=== PATIENT | female | born 2000 | race Caucasian/White ===

== ENCOUNTER 2019-11-05 18:43 | Emergency (ER) | payer MEDICAID, SELFPAY ==
[2019-11-05 18:56] VITALS: BP 130/82; PULSE 95; RESP 16; TEMP 36.8; O2SAT 98; BMI 45.3
--- NOTE | 2019-11-05 19:26 | HMH.EDUTC ---
[facility] Disposition Clinical Impression: Finger laceration Qualifiers: Encounter type: initial encounter Finger: little finger Damage to nail status: without damage Foreign body presence: without foreign body Laterality: right Qualified Code(s): S61.216A - Laceration without foreign body of right little finger without damage to nail, initial encounter Disposition: Home, Self-Care Condition on Discharge: Good Instructions: DI for Laceration Repair -- Simple, How to Care for a Laceration After Repair Additional Instructions: Keep the wound clean and dry. Wear the finger splint for the next couple of days to allow the wound to begin to heal. Keep a dressing on it if you is going to be getting it dirty. Watch the for signs of infection, such as redness, swelling, drainage, fever. etc. Take tylenol or ibuprofen for pain. Follow up with your regular doctor for any issues, or return here. Return in 10 days to have the sutures removed. GO TO THE ER FOR ANY WORSENING SYMPTOMS OR CONCERNS. Referrals: Basil Saenz [Primary Care Provider] - Forms: Work/School Release Time of Disposition: 19:32 Medical Decision Making - Medical Records Medical records reviewed: No: I reviewed the patient's medical records. - Miko Inquiry Pt receiving controlled substance: No Vital Signs: 11/05/19 18:56 Temperature 98.2 F Temperature Source Oral Pulse Rate [Right Brachial] 95 H Respiratory Rate 16 Blood Pressure [Right Arm] 130/82 Blood Pressure Mean [Right Arm] 98 Blood Pressure Source [Right Arm] Automatic Cuff Blood Pressure Position [Right Arm] Sitting 02 Sat by Pulse Oximetry 98 Oxygen Delivery Method Room Air [facility] HPI - General Stated complaint: [id number] aHOME lAC r lITTLE FINGER Time Seen by Provider: 11/05/19 19:26 Mode of Arrival: Ambulatory Source of Information: Patient Limitations: No Limitations Description of Symptoms (Recalled from Triage Doc. by RN): Pt advises she was washing dishes and and cut her right pinky finger HEENT Symptoms (Recalled from RN notes): No Resp Symptoms (Recalled from RN notes): No Skin Symptoms (Recalled from RN notes): Yes (pt has lac to the right pinky finger) MS Symptoms (Recalled from RN notes): No Functional Status (Recalled from RN notes): na - History of Present Illness Provider Complaint: She states that she was washing dishes right before she came in and a glass broke and she cut her right smallest finger. She denies any numbness or tingling. She did had some bleeding at first, but she has got that to stop with holding pressure. - Related Data Home Medications Medication Instructions Recorded Confirmed norethindrone 1 mg-ethinyl 1 tab PO DAILY 06/05/18 06/05/18 estradiol 20 mcg (21)-iron 75 mg (7) tablet Allergies Allergy/AdvReac Type Severity Reaction Status Date / Time No Known Allergies Allergy Verified 11/05/19 19:02 - Worker's Comp Is this a Worker's Comp case?: No [facility] History - Hepatitis A Screen Drug use history?: No High risk sexual behaviors?: No History of sexually transmitted infection?: No Currently employed?: No Childcare worker?: No Do you have indoor plumbing?: Yes Do you have electricity?: Yes Attestation statement:: This patient has been screened for Hepatitis A risk factors. I have reviewed the patient's past medical history: Yes Medical History: Reports:: Asthma Denies:: Cancer, Diabetes Mellitus Type 1, Diabetes Mellitus Type 2, MRSA Other Medical History: Reports: Other Other Surgeries: Yes: No Previous Surgery Amputation: No Fractures: No Comment: wisdom teeth - Social History Smoking Status: Never smoker Alcohol Intake: never Substance Use Type: denies use Occupational Status: employed Family Hx:: No significant family history ROS Obtained: Yes All systems reviewed & no additional complaints - Constitutional Constitutional: Denies chills, Denies fever(s) - Integumentary/Breasts
[2019-11-05 19:43] VITALS: BP 132/70; PULSE 70; RESP 16; TEMP 36.9; O2SAT 98
== END 2019-11-05 19:44 | disposition home or self-care (01) ==
PROVIDERS: Emergency Provider Nurse Practitioner Family; PCP Family Medicine
DX: S61.216A Laceration without foreign body of right little finger without damage to nail, initial encounter (principal); W25.XXXA Contact with sharp glass, initial encounter; Y92.010 Kitchen of single-family (private) house as the place of occurrence of the external cause; J45.909 Unspecified asthma, uncomplicated
CPT/HCPCS: 12001; 99201

== ENCOUNTER → 2022-09-11 10:09 | Outpatient (CLI) | payer OTHER, SELFPAY ==
[2022-09-11 10:58] LABS: Basophils % 0.5 % (0.1-2.0); Eosinophils # 0.1 K/mm3 (0.0-0.4); Eosinophils % 1.3 % (0.1-12.0); Hematocrit 41.6 % (37.0-47.0); Hemoglobin 13.6 g/dL (12.2-16.2); Lymphocytes # 2.2 K/mm3 (0.7-4.5); Lymphocytes % 27.2 % (10-50); Mean Corpuscular HGB Conc 32.6 g/dL (31.8-35.4); Mean Corpuscular Hemoglobin 27.4 pg (27.0-31.2); Mean Corpuscular Volume 83.8 fl (81-99); Mean Platelet Volume 8.4 fl (7.4-10.4); Monocytes # 0.3 K/mm3 (0.1-1.0); Monocytes % 4.1 % (1.7-9.3); Neutrophils # 5.5 K/mm3 (1.8-7.8); Neutrophils % 66.9 % (37.0-80.0); Platelet Count 305 K/mm3 (142-424); Red Blood Count 4.96 M/mm3 (4.20-5.40); Red Cell Distribution Width 14.6 % (11.5-17.5); White Blood Count 8.1 K/mm3 (4.8-10.8)
[2022-09-11 11:11] LABS: Alanine Aminotransferase 21 U/L (12-78); Albumin Level 3.9 g/dl (3.5-5.0); Albumin/Globulin Ratio 1.6 (1.1-1.8); Alkaline Phosphatase 125 U/L (38-126); Anion Gap 16.3 mEq/L (5-15); Aspartate Amino Transferase 20 U/L (14-36); Bilirubin,Total 0.4 mg/dl (0.2-1.3); Blood Urea Nitrogen 11 mg/dl (7-17); Calcium 8.7 mg/dl (8.4-10.2); Carbon Dioxide 27 mmol/L (22.0-30.0); Chloride 100 mmol/L (98-107); Chol/HDL Ratio 3.3 (1-3.5); Cholesterol 130 mg/dl (140-200); Estimated Glomerular Filt Rate 124 ml/min (>60); GFR (African American) 150 ML/MIN (>60); Globulin 2.5 g/dL (1.3-3.2); Glucose 91 mg/dl (74-100); HDL Cholesterol 40 mg/dl (40-60); Potassium 4.3 mmoL/L (3.5-5.1); Sodium 139 mmol/L (136-145); Total Protein,Serum 6.4 g/dl (6.3-8.2); Triglycerides 51 mg/dl (30-150); VLDL Cholesterol 10 mg/dL (0-40)
[2022-09-11 11:17] LABS: Microscopic, Urine URINE MICROSCOPIC (MICROSCOPIC)
[2022-09-11 11:19] LABS: Hemoglobin A1C 5.2 % (4.0-6.0)
[2022-09-11 11:22] LABS: Direct LDL Cholesterol 84.26 mg/dL (100-129)
[2022-09-11 11:26] LABS: Appearance,Urine CLEAR (Clear); Bilirubin,Urine Negative (Negative); Blood, Urine Negative (Negative); Color,Urine YELLOW (Yellow); Glucose,Urine (UA) Negative (Negative); Ketones,Urine Negative (Negative); Leukocyte Esterase,Urine Negative (Negative); Nitrate,Urine Negative (Negative); Protein,Urine Negative (Negative); Specific Gravity, Urine 1.015 (1.005-1.030); Urobilinogen,Urine 0.2 EU/dl (0.2)
[2022-09-11 11:37] LABS: Bacteria,Urine Trace /lpf; Squamous Epithelial Cell,Urine Occasional #/hpf (0-5); WBC,Urine Occasional #/hpf (0-3)
[2022-09-11 11:42] LABS: Thyroid Stimulating Hormone 1.85 uIU/mL (0.465-4.68)
[2022-09-11 12:01] LABS: Vitamin B12 275 pg/mL (239-931)
[2022-09-19 00:04] LABS: 1,25 Dihydroxy Vitamin D 49 pg/mL (.); 1,25-Dihydroxy, Vitamin D-2 <10 pg/mL (.); 1,25-Dihydroxy, Vitamin D-3 46 pg/mL (.)
== END ==
PROVIDERS: PCP Nurse Practitioner Family; Visit Provider Nurse Practitioner Family
DX: Z00.00 Encounter for general adult medical examination without abnormal findings (principal); R53.83 Other fatigue; J45.909 Unspecified asthma, uncomplicated; L73.2 Hidradenitis suppurativa; E66.9 Obesity, unspecified; Z68.42 Body mass index [BMI] 45.0-49.9, adult; Z13.1 Encounter for screening for diabetes mellitus; Z13.220 Encounter for screening for lipoid disorders
CPT/HCPCS: 36415; 80053; 80061; 81001; 82607; 82652; 83036; 84443; 85025; 87086

== ENCOUNTER → 2022-09-11 12:52 | Outpatient (CLI) | payer BC, SELFPAY | PROVIDERS: PCP Nurse Practitioner Family; Visit Provider Nurse Practitioner Family | DX: R53.83 Other fatigue (principal) ==

== ENCOUNTER → 2022-12-18 16:07 | Outpatient (CLI) | payer BC, OTHER, SELFPAY | PROVIDERS: PCP Nurse Practitioner Family; Visit Provider Nurse Practitioner Family | DX: J02.9 Acute pharyngitis, unspecified (principal) | CPT/HCPCS: 87070 ==

== ENCOUNTER 2023-06-07 11:40 | Emergency (ER) | payer OTHER, SELFPAY ==
[2023-06-07 12:05] VITALS: BP 140/84; PULSE 93; RESP 19; TEMP 36.8; O2SAT 99; BMI 52.8
[2023-06-07 12:21] LABS: UTC Pregnancy Test, Urine Negative (Negative)
--- NOTE | 2023-06-07 12:31 | EXP.UTC ---
Discharge Plan Disposition Patient Disposition: Home, Self-Care Condition: Good Prescriptions Prescriptions: No Action Nexplanon 68 mg implant 1 implant SUBDERMAL ONCE Referrals Follow up/Referrals: Provider,Referral, MD [Primary Care Provider] - See instructions Activity Restrictions/Add. Instructions Additional Instructions/Restrictions: Follow up with Radha Leary as scheduled today Further care an treatment from your Family Doctor Return if needed Straight to ER if any life threatening symptoms Clinical Impressions Clinical Impression: Abdominal discomfort Instructions Patient Instructions: DI for Abdominal Pain-Adult Discharge ED Provider: Georgina De Leon [facility] HPI General Stated complaint: abd pain Mode of Arrival: Ambulatory Source of Information: Patient Limitations: No Limitations Time Seen by Provider: 06/07/23 12:31 Description of Symptoms (Recalled from Triage Doc. by RN): Pt's symptoms are cramping above umbilicus, nausea, cramping, and sulfa burps. HEENT Symptoms (Recalled from RN notes): No Resp Symptoms (Recalled from RN notes): No Skin Symptoms (Recalled from RN notes): No MS Symptoms (Recalled from RN notes): No Functional Status (Recalled from RN notes): n/a History of Present Illness Provider Complaint: Patient states that she felt bad on Sunday and thought she had the stomach bug States that she had N/V/D States that then she felt a little better and then she started with sharp crampy like feeling in her umbilical area that comes and goes and having sulfa burps States that she hasnt had any vomiting since the initial except this morning and she vomited once but the cramping like pain has continued on and off all day and her stomach feels sore Denies fever denies chills States she has appointment with her PCP later today but she came on in to get checked Related Data Home Medications Medication Instructions Recorded Confirmed etonogestrel 68 mg subdermal 1 implant subdermal ONCE 12/03/19 06/07/23 implant (Nexplanon) Allergies Allergy/AdvReac Type Severity Reaction Status Date / Time amoxicillin Allergy Severe diarrhea, Verified 06/07/23 12:16 vomitting keflex Allergy Mild Nausea Uncoded 12/18/22 14:16 Worker's Comp Is this a Worker's Comp case?: No [facility] Disclaimer: The information contained in this section may have been updated after the patient was seen, as this information can be updated by other users. Family History Father Obesity Mother Cancer right renal cancer with right nephrectomy Social History Smoking Status: Never smoker alcohol intake: never substance use type: denies use current occupational status: employed Travel in the last 8 weeks: None adopted: Yes household members: spouse marital status: number of children: 0 well-balanced diet: about half the time caffeine: No physical activity: walking and weight training frequency: 5-6 times per week duration: 30-45 minutes/day ROS Obtained: Yes All systems reviewed & no additional complaints except as documented and Yes Systems reviewed as appropriate & no additional complaints except as documented Constitutional Constitutional: Reports system reviewed and no additional complaints, except as documented and Reports as per HPI ENT Ears, Nose, Mouth, and Throat: Reports system reviewed and no additional complaints, except as documented and Reports as per HPI Cardiovascular Cardiovascular: Reports system reviewed and no additional complaints, except as documented and Reports as per HPI Gastrointestinal Gastrointestingal: Reports system reviewed and no additional complaints, except as documented, as per HPI, belching (sulfa burp), cramping, nausea and vomiting (earlier in the week); Denies change in stool character, constipation, excessive flatus or heartburn Physical Exam General General appearance: alert and in no apparent distress ENT ENT exam: Present mucous membranes moist Respiratory Respiratory exam: Present normal lung sounds bilaterally; Absent respiratory distress or wheezes Cardiovascular Cardiovascular exam: Present regular rate, normal rhythm and normal heart sounds Abdominal Exam Abdominal exam: Present soft, tenderness (states that stomach is sore ) and normal bowel sounds; Absent distention Neurological Exam Neurological exam: Present alert, oriented X3 and normal gait Medical Decision Making Miko Inquiry Pt receiving controlled substance: No Miko was queried for this patient: No Vital Signs: 06/07/23 12:05 Temperature 98.3 F Temperature Source Oral Pulse Rate [Right Radial] 93 H Respiratory Rate 19 Blood Pressure [Right Arm] 140/84 Blood Pressure Mean [Right Arm] 102 Blood Pressure Source [Right Arm] Automatic Cuff Blood Pressure Position [Right Arm] Sitting 02 Sat by Pulse Oximetry 99 Oxygen Delivery Method Room Air Lab Data Lab results reviewed: Yes I reviewed the patient's lab results. Lab Results 06/07/23 12:11: Tst Clinic Negative Medical Decision Narrative: Discussed transfer to the ED patient declined at this time will contact PCP and discuss patient Spoke with Radha Leary APRN and discussed patient will do Hpylori breath test in [facility] and give patient a GI Cocktail and have her follow up as scheduled today in the clinic Patient reports instant relief with GI Cocktail
[2023-06-07] MEDS: BELLADONNA ALKALOIDS 60 ML ML PO (13:13)
[2023-06-07 13:35] VITALS: BP 140/84; PULSE 93; RESP 19; TEMP 36.8; O2SAT 99
[2023-06-08 17:06] LABS: H. pylori Breath Test Negative (Negative)
== END 2023-06-07 13:35 | disposition home or self-care (01) ==
PROVIDERS: Emergency Provider Nurse Practitioner
DX: R10.33 Periumbilical pain (principal); R11.2 Nausea with vomiting, unspecified
CPT/HCPCS: 81025; 83013; 99204; 99212; G0463

== ENCOUNTER 2023-06-28 08:07 | Outpatient (CLI) | payer OTHER, SELFPAY ==
--- NOTE | 2023-06-28 08:08 | US_ITS ---
FINAL REPORT TECHNIQUE: Sonographic images of the abdomen were obtained in all four quadrants. CLINICAL HISTORY: epigastric and umbilicus pain, n/v/d COMPARISON: None FINDINGS: LIVER: Homogeneous. No focal hepatic lesion or intrahepatic biliary dilatation. GALLBLADDER: No gallstones. No pericholecystic fluid collection or gallbladder wall thickening. The common duct measures 2 mm. This is within normal limits for age. PANCREAS: Unremarkable. RIGHT KIDNEY: 11.4 cm. No hydronephrosis, mass or stone. LEFT KIDNEY: 11.3 cm. No hydronephrosis, mass or stone. SPLEEN: 12.4 cm. No focal splenic lesion. AORTA/IVC: No abdominal aortic aneurysm. Visualized IVC within normal limits. OTHER: No ascites. IMPRESSION: Unremarkable ultrasound of the abdomen. Reviewed, Interpreted and Dictated by Chiquita Roberts MD Transcribed by Rere Blue Authenticated and . [facility]
== END 2023-06-28 23:59 ==
LOC: RAD 08:08
PROVIDERS: PCP Nurse Practitioner Family; Visit Provider Nurse Practitioner Family
DX: R10.13 Epigastric pain (principal); R10.33 Periumbilical pain
CPT/HCPCS: 76700

== ENCOUNTER 2023-09-19 10:39 | Outpatient (CLI) | payer OTHER, SELFPAY | END 2023-09-19 23:59 | disposition home or self-care (01) | LOC: LAB.DROPOF 09-20 10:40 | PROVIDERS: PCP Nurse Practitioner Family; Visit Provider Nurse Practitioner Family | DX: J02.9 Acute pharyngitis, unspecified (principal) | CPT/HCPCS: 87070 ==

== ENCOUNTER 2023-10-28 15:30 | Emergency (ER) | payer OTHER, SELFPAY ==
[2023-10-28 15:35] VITALS: BP 139/95; PULSE 105; RESP 18; TEMP 37.4; O2SAT 95; BMI 45.1
--- NOTE | 2023-10-28 16:04 | ED_ITS ---
Discharge Plan Disposition Patient Disposition: Home, Self-Care Condition: Good Prescriptions Prescriptions: New azithromycin [Zithromax] 250 mg tablet 250 mg PO UD DOSE PK Qty: 6 0RF Rx Instructions: Take two (2) tablets today, then one (1) tablet days #2 thru #5 methylprednisolone 4 mg Tablets,Dose Pack 4 mg PO DIRECTED 6 Days Qty: 21 0RF Rx Instructions: Take 1 pack as directed for 6 days [id number]-[id number] [Bromfed DM] 2-30-10 mg/5 mL Syrup 5 ml PO Q6H PRN (Reason: Cough) Qty: 240 0RF No Action Nexplanon 68 mg implant 1 implant SUBDERMAL ONCE omeprazole 20 mg capsule,delayed release(DR/EC) 20 mg PO DAILY Qty: 60 0RF cetirizine [Zyrtec] 10 mg tablet 10 mg PO DAILY Qty: 90 3RF Referrals Follow up/Referrals: Radha Leayr APRN [Primary Care Provider] - See instructions Activity Restrictions/Add. Instructions Additional Instructions/Restrictions: Drink plenty of fluids. Take tylenol or ibuprofen for pain or fever. Take the medications as directed. Follow up with your regular doctor. GO TO THE ER FOR ANY WORSENING SYMPTOMS Clinical Impressions Clinical Impression: Sinusitis, Viral syndrome Instructions Patient Instructions: Sinusitis, DI for Sinusitis Discharge ED Provider: Sandor Espino [facility] General Stated complaint: head is hurting,fever,congestion Mode of Arrival: Ambulatory Source of Information: Patient Limitations: No Limitations Time Seen by Provider: 10/28/23 16:04 Description of Symptoms (Recalled from Triage Doc. by RN): Pt's symptoms are GRANGER. HEENT Symptoms (Recalled from RN notes): Yes Resp Symptoms (Recalled from RN notes): No Skin Symptoms (Recalled from RN notes): No MS Symptoms (Recalled from RN notes): No Functional Status (Recalled from RN notes): n/a History of Present Illness Provider Complaint: She states that she has had sinus congestion and head ache for the past 2 days. She has had chills and body aches, but no documented fever. Related Data Home Medications Medication Instructions Recorded Confirmed etonogestrel 68 mg subdermal 1 implant subdermal ONCE 12/03/19 10/28/23 implant (Nexplanon) Previous Rx's Medication Instructions Recorded omeprazole 20 mg capsule,delayed 20 mg PO DAILY #60 caps 06/20/23 release cetirizine 10 mg tablet (Zyrtec) 10 mg PO DAILY #90 tabs 09/19/23 azithromycin 250 mg tablet 250 mg PO UD DOSE PK #6 tabs 10/28/23 (Zithromax) olzogwtvaygxnlp-dzjdrxckeexkupg-QW 5 ml PO Q6H PRN Cough #240 mL 10/28/23 2 mg-30 mg-10 mg/5 mL oral syrup (Bromfed DM) methylprednisolone 4 mg tablets in 4 mg PO DIRECTED 6 days #21 tabs 10/28/23 a dose pack Allergies Allergy/AdvReac Type Severity Reaction Status Date / Time amoxicillin Allergy Severe diarrhea, Verified 10/28/23 15:44 vomitting keflex Allergy Mild Nausea Uncoded 07/04/23 13:10 Worker's Comp Is this a Worker's Comp case?: No [facility] Disclaimer: The information contained in this section may have been updated after the patient was seen, as this information can be updated by other users. Medical History Abdominal discomfort URI (upper respiratory infection) Fatigue Asthma Hidradenitis suppurativa Morbid obesity with BMI of 45.0-49.9, adult Nexplanon in place Surgical History No significant past surgical history Family History Father Obesity Mother Cancer right renal cancer with right nephrectomy Social History Smoking Status: Never smoker alcohol intake: never substance use type: denies use current occupational status: employed Travel in the last 8 weeks: None adopted: Yes household members: spouse marital status: number of children: 0 well-balanced diet: about half the time caffeine: No physical activity: walking and weight training frequency: 5-6 times per week duration: 30-45 minutes/day ROS Obtained: Yes All systems reviewed & no additional complaints except as documented Constitutional Constitutional: Reports headache(s) and Reports poor appetite Eyes Eyes: Reports system reviewed and no additional complaints, except as documented ENT Ears, Nose, Mouth, and Throat: Reports as per HPI and Reports headache(s) Cardiovascular Cardiovascular: Reports system reviewed and no additional complaints, except as documented and Denies chest pain Respiratory Respiratory: Denies shortness of breath, Denies chest congestion, Reports cough, Denies stridor and Denies wheezing Gastrointestinal Gastrointestingal: Reports system reviewed and no additional complaints, except as documented; Denies abdominal pain, diarrhea or vomiting Musculoskeletal Musculoskeletal: Reports system reviewed and no additional complaints, except as documented and Denies arthralgias Integumentary/Breasts Skin/Breast: Reports system reviewed and no additional complaints, except as documented and Denies rash Neurologic Neurologic: Reports as per HPI, Reports headache(s) and Denies paresthesias Allergic/Immunologic Allergic/Immunologic: Denies wheezing Physical Exam General General appearance: alert and in no apparent distress Eye Eye exam: Present normal appearance, PERRL and EOMI ENT ENT exam: Present mucous membranes moist and normal external ear exam Expanded ENT Exam External ear exam: Present normal external inspection TM/Canal exam: Bilateral TM: erythema and bulging Nose exam: Absent sinus tenderness Nasal speculum exam: Bilateral: normal Mouth exam: Present normal external inspection; Absent drooling Teeth exam: Present normal inspection Throat exam: Present tonsillar erythema and tonsillomegaly Neck Neck exam: Present normal inspection, full ROM and trachea midline; Absent tenderness, lymphadenopathy or thyromegaly Chest Chest inspection: Present normal inspection and symmetric chest wall rise; Absent tenderness or rash Respiratory Respiratory exam: Present normal lung sounds bilaterally; Absent respiratory distress, wheezes, stridor or accessory muscle use Cardiovascular Cardiovascular exam: Present regular rate, normal rhythm and normal heart sounds Abdominal Exam Abdominal exam: Present soft; Absent distention, tenderness, guarding, rebound or rigidity Extremities Exam Extremities exam: Present normal inspection, full ROM and normal capillary refill; Absent tenderness or calf tenderness Back Exam Back exam: Present normal inspection and full ROM; Absent tenderness Neurological Exam Neurological exam: Present alert, oriented X3, CN II-XII intact, normal gait and reflexes normal; Absent motor sensory deficit Psychiatric Psychiatric exam: Present normal affect and normal mood Skin Skin exam: Present warm, dry, intact and normal color Lymphatic Lymphatic Findings: no adenopathy Medical Decision Making Medical Records Medical records reviewed: No I reviewed the patient's medical records. Miko Inquiry Pt receiving controlled substance: No Vital Signs: 10/28/23 15:35 Temperature 99.4 F Temperature Source Oral Pulse Rate [Right Radial] 105 H Respiratory Rate 18 Blood Pressure [Right Arm] 139/95 H Blood Pressure Mean [Right Arm] 109 Blood Pressure Source [Right Arm] Automatic Cuff Blood Pressure Position [Right Arm] Sitting 02 Sat by Pulse Oximetry 95 Oxygen Delivery Method Room Air
[2023-10-28] MEDS: KETOROLAC 60MG/2ML VIAL 60 MG IM (16:28)
[2023-10-28 16:41] VITALS: BP 139/95; PULSE 105; RESP 18; TEMP 37.4; O2SAT 95
--- NOTE | 2023-10-28 16:41 | PC.NURSE ---
Sent rapid to lab via tube system.
[2023-10-28 16:50] LABS: Adenovirus,PCR Not Detected (NotDetected); Bordetella Pertussis Not Detected (NotDetected); Chlamydophila Pneumoniae, PCR Not Detected (NotDetected); Coronavirus 229E Not Detected (NotDetected); Coronavirus NL63 Not Detected (NotDetected); Coronavirus OC43 Not Detected (NotDetected); Coronovirus HKU1,PCR Not Detected (NotDetected); Human Metapneumovirus Not Detected (NotDetected); Influenza A, PCR Not Detected (NotDetected); Influenza AH1, 2009 Not Detected (NotDetected); Influenza AH1, PCR Not Detected (NotDetected); Influenza AH3,PCR Not Detected (NotDetected); Influenza B, PCR Not Detected (NotDetected); Mycoplasma Pneumoniae, PCR Not Detected (NotDetected); Parainfluenza 1, PCR Not Detected (NotDetected); Parainfluenza 2, PCR Not Detected (NotDetected); Parainfluenza 3, PCR Not Detected (NotDetected); Parainfluenza 4, PCR Not Detected (NotDetected); Respiratory Syncytial Virus Not Detected (NotDetected); Rhinovirus/Enterovirus Not Detected (NotDetected)
[2023-10-28 19:34] LABS: Coronavirus 19, PCR Detected (NotDetected)
--- NOTE | 2023-10-28 19:40 | PC.NURSE ---
Called pt to discuss full panel results, and
--- NOTE | 2023-10-29 10:42 | PC.NURSE ---
PATIENT NOTIFIED OF POSITIVE COVID RESULT
== END 2023-10-28 16:41 | disposition home or self-care (01) ==
PROVIDERS: Emergency Provider Nurse Practitioner Family; PCP Nurse Practitioner Family
DX: U07.1 COVID-19 (principal); J01.90 Acute sinusitis, unspecified; R51.9 Headache, unspecified
CPT/HCPCS: 87581; 87632; 87635; 87798; 96372; 99212; 99214; G0463; J1885

== ENCOUNTER 2024-02-01 11:00 | Outpatient (RCR) | payer OTHER, SELFPAY | END 2024-02-01 23:59 | disposition home or self-care (01) | LOC: PT 11:00 | PROVIDERS: Visit Provider Nurse Practitioner Family | DX: M25.562 Pain in left knee (principal) | CPT/HCPCS: 97163 ==

== ENCOUNTER 2024-02-22 12:20 | Emergency (ER) | payer OTHER, SELFPAY ==
[2024-02-22 12:39] LABS: Microscopic, Urine URINE MICROSCOPIC (MICROSCOPIC)
[2024-02-22 12:41] LABS: Appearance,Urine SL CLOUDY (Clear); Bilirubin,Urine Negative (Negative); Blood, Urine TRACE-I (Negative); Color,Urine YELLOW (Yellow); Glucose,Urine (UA) Negative (Negative); Ketones,Urine Negative (Negative); Leukocyte Esterase,Urine TRACE (Negative); Nitrate,Urine Negative (Negative); Protein,Urine Negative (Negative); Specific Gravity, Urine 1.015 (1.005-1.030); Urobilinogen,Urine 0.2 EU/dl (0.2)
[2024-02-22 12:50] LABS: Bacteria,Urine 1+ /lpf; RBC,Urine Occasional #/hpf (0-3)
[2024-02-22 12:55] VITALS: BP 152/79; PULSE 80; RESP 18; TEMP 36.7; O2SAT 100; BMI 49.4
--- NOTE | 2024-02-22 12:57 | EXP.UTC ---
Discharge Plan Disposition Patient Disposition: Home, Self-Care Condition: Good Prescriptions Prescriptions: New phenazopyridine [Pyridium] 200 mg tablet 200 mg PO Q8H 2 Days Qty: 6 0RF nitrofurantoin monohyd/m-cryst [Macrobid] 100 mg Capsule 100 mg PO BID Qty: 10 0RF Rx Instructions: must administer with a meal/food No Action Nexplanon 68 mg implant 1 implant SUBDERMAL ONCE Referrals Follow up/Referrals: Radha Leary APRN [Primary Care Provider] - See instructions Activity Restrictions/Add. Instructions Additional Instructions/Restrictions: Drink plenty of fluids. Take tylenol or ibuprofen for pain or fever. Take the medications as directed. Follow up with your regular doctor. GO TO THE ER FOR ANY WORSENING SYMPTOMS The pyridium will make your urine turn orange, this is an expected side effect. It will stain your clothes if it comes into contact with them. We will culture the urine. That will tell what bacteria is causing your infection and which antibiotics will treat it best.This test takes 3 days to complete. Clinical Impressions Clinical Impression: UTI (urinary tract infection) Instructions Patient Instructions: Urinary Tract Infection, Urine Culture, DI for Urinary Tract Infection (UTI), Phenazopyridine Print Language Print Language: Macedonian Discharge ED Provider: Sandor Espino [facility] General Stated complaint: pain and frequent urination Time Seen by Provider: 02/22/24 12:57 History of Present Illness Provider Complaint: She states that for the past 2 days she has had low back pain, dysuria, and urinary frequency. Related Data Home Medications ?Medication ?Instructions ?Recorded ?Confirmed etonogestrel 68 mg subdermal 1 implant subdermal ONCE 12/03/19 02/22/24 implant (Nexplanon) Previous Rx's ?Medication ?Instructions ?Recorded nitrofurantoin 100 mg PO BID #10 caps 02/22/24 monohydrate/macrocrystals 100 mg capsule (Macrobid) phenazopyridine 200 mg tablet 200 mg PO Q8H 2 days #6 tabs 02/22/24 (Pyridium) Allergies Allergy/AdvReac Type Severity Reaction Status Date / Time amoxicillin Allergy Severe diarrhea, Verified 01/28/24 13:07 vomitting cephalexin [From Keflex] AdvReac Mild Nausea Verified 01/28/24 13:07 [facility] Disclaimer: The information contained in this section may have been updated after the patient was seen, as this information can be updated by other users. Medical History Abdominal discomfort Asthma Fatigue Hidradenitis suppurativa Morbid obesity with BMI of 45.0-49.9, adult Nexplanon in place inserted 01/11/2022 URI (upper respiratory infection) Surgical History No significant past surgical history Family History Father Obesity Mother Cancer right renal cancer with right nephrectomy Social History Smoking Status: Never smoker alcohol intake: never substance use type: denies use current occupational status: employed Travel in the last 8 weeks: None adopted: Yes household members: spouse marital status: number of children: 0 well-balanced diet: about half the time caffeine: No physical activity: walking and weight training frequency: 5-6 times per week duration: 30-45 minutes/day ROS Obtained: Yes All systems reviewed & no additional complaints except as documented Constitutional Constitutional: Reports system reviewed and no additional complaints, except as documented, Denies chills and Denies fever(s) Eyes Eyes: Denies eye discharge ENT Ears, Nose, Mouth, and Throat: Denies dysphagia, Denies sore throat and Denies throat swelling Cardiovascular Cardiovascular: Denies chest pain and Denies dyspnea Respiratory Respiratory: Denies chest congestion, Denies cough and Denies dyspnea Gastrointestinal Gastrointestingal: Denies abdominal pain, constipation, diarrhea, dysphagia, nausea or vomiting Genitourinary Female Genitourinary: Reports as per HPI, Reports dysuria, Reports urinary frequency, Denies urinary incontinence, Reports urinary hesitancy and Reports urinary urgency Musculoskeletal Musculoskeletal: Denies arthralgias and Reports back pain Integumentary/Breasts Skin/Breast: Denies rash Neurologic Neurologic: Denies paresthesias Allergic/Immunologic Allergic/Immunologic: Denies throat swelling Physical Exam General General appearance: alert and in no apparent distress Head Head exam: atraumatic and normocephalic Eye Eye exam: Present normal appearance, PERRL and EOMI ENT ENT exam: Present normal exam, mucous membranes moist, TM's normal bilaterally and normal external ear exam Neck Neck exam: Present normal inspection, full ROM and trachea midline; Absent tenderness, meningismus or lymphadenopathy Chest Chest inspection: Present normal inspection and symmetric chest wall rise; Absent tenderness Respiratory Respiratory exam: Present normal lung sounds bilaterally; Absent respiratory distress, wheezes or stridor Cardiovascular Cardiovascular exam: Present regular rate, normal rhythm and normal heart sounds Abdominal Exam Abdominal exam: Present soft and normal bowel sounds; Absent distention, tenderness, guarding, rebound, rigidity, incision, psoas sign, obturator sign, heel tap sign, Aguirre's sign, Rovsing's sign or tenderness at McBurney's Point Extremities Exam Extremities exam: Present normal inspection, full ROM and normal capillary refill; Absent tenderness, edema, joint swelling, calf tenderness or cyanosis Back Exam Back exam: Present normal inspection and full ROM; Absent tenderness, CVA tenderness (R) or CVA tenderness (L) Neurological Exam Neurological exam: Present alert, oriented X3 and normal gait Psychiatric Psychiatric exam: Present normal affect and normal mood Skin Skin exam: Present warm, dry, intact and normal color Lymphatic Lymphatic Findings: no adenopathy Medical Decision Making Medical Records Medical records reviewed: No I reviewed the patient's medical records. Screening: Per USPSTF and CDC recommendations, given the prevalence of disease in our region, it is our hospital?s policy to screen for HIV and viral Hepatitis for all patients aged 18 and over and those with ongoing risk factors. Miko Inquiry Pt receiving controlled substance: No Lab Data Lab results reviewed: Yes I reviewed the patient's lab results. Lab Results 02/22/24 12:30: Urine Color Yellow, Urine Appearance Sl cloudy, Urine pH 6.0, Ur Specific [place] 1.015, Urine Protein Negative, Urine Glucose (UA) Negative, Urine Ketones Negative, Urine Blood Trace-i, Urine Nitrate Negative, Urine Bilirubin Negative, Urine Urobilinogen 0.2, Ur Leukocyte Esterase Trace, Urine RBC Occasional, Urine WBC None, Ur Squamous Epith Cells 5-10, Urine Bacteria 1+ Orders (Tests/Meds): ORDERS Category Date Time Status Urinalysis and Microscopic Stat Lab 02/22/24 12:30 Completed Urine Culture Stat Micro 02/22/24 12:47 Ordered
[2024-02-22 13:13] VITALS: BP 152/79; PULSE 80; RESP 18; TEMP 36.7
== END 2024-02-22 13:14 | disposition home or self-care (01) ==
PROVIDERS: Emergency Provider Nurse Practitioner Family; PCP Nurse Practitioner Family
DX: N39.0 Urinary tract infection, site not specified (principal)
CPT/HCPCS: 81001; 87086; 99213; G0381

== ENCOUNTER 2024-03-06 10:13 | Outpatient (CLI) | payer OTHER, SELFPAY ==
[2024-03-06 10:52] LABS: Basophils % 0.3 % (0.1-2.0); Eosinophils # 0.1 K/mm3 (0.0-0.4); Eosinophils % 1.2 % (0.1-12.0); Hematocrit 40.6 % (37.0-47.0); Hemoglobin 13.9 g/dL (12.2-16.2); Lymphocytes # 1.4 K/mm3 (0.7-4.5); Lymphocytes % 15.2 % (10-50); Mean Corpuscular HGB Conc 34.2 g/dL (31.8-35.4); Mean Corpuscular Hemoglobin 29.1 pg (27.0-31.2); Mean Corpuscular Volume 85.1 fl (81-99); Mean Platelet Volume 8.2 fl (7.4-10.4); Monocytes # 0.5 K/mm3 (0.1-1.0); Monocytes % 5.2 % (1.7-9.3); Neutrophils # 7.3 K/mm3 (1.8-7.8); Neutrophils % 78.1 % (37.0-80.0); Platelet Count 270 K/mm3 (142-424); Red Blood Count 4.77 M/mm3 (4.20-5.40); Red Cell Distribution Width 13.9 % (11.5-17.5); White Blood Count 9.3 K/mm3 (4.8-10.8)
[2024-03-06 11:11] LABS: Alanine Aminotransferase 26 U/L (12-78); Albumin/Globulin Ratio 1.6 (1.1-1.8); Alkaline Phosphatase 108 U/L (38-126); Anion Gap 11.7 mEq/L (5-15); Aspartate Amino Transferase 24 U/L (14-36); Bilirubin,Total 0.5 mg/dl (0.2-1.3); Blood Urea Nitrogen 11 mg/dl (7-17); Calcium 8.8 mg/dl (8.4-10.2); Carbon Dioxide 27 mmol/L (22.0-30.0); Chloride 105 mmol/L (98-107); Chol/HDL Ratio 3.9 (1-3.5); Cholesterol 161 mg/dl (140-200); Estimated Glomerular Filt Rate 122 ml/min (>60); GFR (African American) 147 ML/MIN (>60); Globulin 2.5 g/dL (1.3-3.2); Glucose 89 mg/dl (74-100); HDL Cholesterol 41 mg/dl (40-60); Potassium 4.7 mmoL/L (3.5-5.1); Sodium 139 mmol/L (136-145); Total Protein,Serum 6.5 g/dl (6.3-8.2); Triglycerides 75 mg/dl (30-150); Uric Acid 4.3 mg/dl (2.5-6.2); VLDL Cholesterol 15 mg/dL (0-40)
[2024-03-06 11:20] LABS: Erythrocyte Sedimentation Rate 19 mm/hr (0-20)
[2024-03-06 11:22] LABS: C-Reactive Protein 37.6 mg/L (0-4); Direct LDL Cholesterol 104.27 mg/dL (100-129)
[2024-03-06 11:28] LABS: 25-OH Vitamin D, Total 37.1 ng/mL (30-100)
[2024-03-06 11:40] LABS: Thyroid Stimulating Hormone 2.17 uIU/mL (0.465-4.68)
[2024-03-06 11:47] LABS: HIV (1&2) Antibody Rapid NONREACTIVE (NONREACTIVE)
[2024-03-06 11:49] LABS: Iron 48 ug/dL (37-170)
[2024-03-06 11:53] LABS: Hemoglobin A1C 5.2 % (4.0-6.0)
[2024-03-06 12:03] LABS: Total Iron Binding Capacity 303 ug/dL (265-497)
[2024-03-06 12:27] LABS: Ferritin 54.4 ng/ml (6.24-137)
[2024-03-06 13:10] LABS: Vitamin B12 355 pg/mL (239-931)
[2024-03-07 05:12] LABS: HCV Ab Non Reactive (Non Reactive)
[2024-03-07 08:24] LABS: RA Latex Turbid. 13.1 IU/mL (<14.0)
[2024-03-07 11:15] LABS: Anti-Centromere B Antibodies <0.2 AI (0.0-0.9); Anti-DNA (DS) Ab Qn 1 IU/mL (0-9); Anti-Jo-1 <0.2 AI (0.0-0.9); Anti-Smith Antibody <0.2 AI (0.0-0.9); Antichromatin Antibodies <0.2 AI (0.0-0.9); Antiscleroderma-70 Antibodies <0.2 AI (0.0-0.9); RNP Antibodies <0.2 AI (0.0-0.9); Sjogren's Anti-SS-A <0.2 AI (0.0-0.9); Sjogren's Anti-SS-B <0.2 AI (0.0-0.9)
[2024-03-07 14:14] LABS: Anti-Cyclic Citrullinated Pept 6 units (0-19)
[2024-03-08 07:35] LABS: H. pylori Breath Test Negative (Negative)
[2024-03-11 15:17] LABS: Antinuclear Antibodies, IFA Positive
== END 2024-03-06 23:59 | disposition home or self-care (01) ==
LOC: LAB 10:14
PROVIDERS: PCP Nurse Practitioner Family; Visit Provider Student in an Organized Health Care Education/Training Program
DX: R10.9 Unspecified abdominal pain (principal); M25.50 Pain in unspecified joint; Z83.2 Family history of diseases of the blood and blood-forming organs and certain disorders involving the immune mechanism; R53.83 Other fatigue; M79.10 Myalgia, unspecified site; Z13.1 Encounter for screening for diabetes mellitus; E66.01 Morbid (severe) obesity due to excess calories; Z68.42 Body mass index [BMI] 45.0-49.9, adult; Z82.61 Family history of arthritis; Z11.59 Encounter for screening for other viral diseases; Z91.89 Other specified personal risk factors, not elsewhere classified; Z11.4 Encounter for screening for human immunodeficiency virus [HIV]; Z13.29 Encounter for screening for other suspected endocrine disorder; Z13.21 Encounter for screening for nutritional disorder
CPT/HCPCS: 36415; 80050; 80053; 80061; 82306; 82607; 82728; 83013; 83036; 83540; 83550; 84443; 84550; 85025; 85651; 86038; 86140; 86200; 86225; 86235; 86431; 86803; 87389

== ENCOUNTER 2024-04-04 07:33 | Outpatient (CLI) | payer OTHER, SELFPAY | END 2024-04-04 23:59 | disposition home or self-care (01) | LOC: RAD 07:34 | PROVIDERS: PCP Nurse Practitioner Family; Visit Provider Nurse Practitioner Family | DX: M25.562 Pain in left knee (principal) ==

== ENCOUNTER 2024-04-08 13:00 | Outpatient (CLI) | payer OTHER, SELFPAY ==
[2024-04-08 13:06] LABS: Adenovirus F 40/41, stool Not Detected (NotDetected); Astrovirus Not Detected (NotDetected); Campylobacter Not Detected (NotDetected); Clostridium Difficile A/B, PCR Not Detected (NotDetected); Cryptosporidium Not Detected (NotDetected); Cyclospora Cayetanesis Not Detected (NotDetected); Entamoeba histolytica Not Detected (NotDetected); Enteroaggregative E coli Not Detected (NotDetected); Enteropathogenic E coli Not Detected (NotDetected); Enterotoxigenic E coli Not Detected (NotDetected); Giardia lamblia Not Detected (NotDetected); Norovirus Not Detected (NotDetected); Plesimonas Shigalloides, PCR Not Detected (NotDetected); Rotavirus A Not Detected (NotDetected); Salmonella, PCR Not Detected (NotDetected); Sapovirus Not Detected (NotDetected); Shiga-like toxin E coli Not Detected (NotDetected); Shigella Enterovasive E coli Not Detected (NotDetected); Vibrio Cholerae Not Detected (NotDetected); Vibrio, PCR Not Detected (NotDetected); Yersinia Entercolitica, PCR Not Detected (NotDetected)
== END 2024-04-08 23:59 | disposition home or self-care (01) ==
LOC: LAB 13:01
PROVIDERS: PCP Nurse Practitioner Family; Visit Provider Student in an Organized Health Care Education/Training Program
DX: R19.7 Diarrhea, unspecified (principal); R10.9 Unspecified abdominal pain
CPT/HCPCS: 87506

== ENCOUNTER 2024-04-09 07:17 | Outpatient (CLI) | payer OTHER, SELFPAY ==
--- NOTE | 2024-04-09 07:18 | CT_ITS ---
FINAL REPORT TECHNIQUE: After the administration of intravenous contrast, axial images were obtained through the abdomen and pelvis by computed tomography. This study was performed with technique to keep radiation doses as low as reasonably achievable, (ALARA). Individualized dose reduction techniques using automated exposure control or adjustment of the MA and/or KV according to the patient's size were employed. CLINICAL HISTORY: abd pain, elevated crp FINDINGS: Abdomen: The lung bases are clear. The liver is normal in size and attenuation. The spleen is unremarkable. The adrenals are normal. The pancreas is unremarkable. The kidneys enhance appropriately. The aorta is normal in caliber. There is no free fluid or adenopathy. Pelvis: The appendix is normal. There is a small umbilical hernia containing fat. The urinary bladder is unremarkable. There is no free fluid or adenopathy. IMPRESSION: No acute intra-abdominal process. Reviewed, Interpreted and Dictated by Uri Welsh III, MD Transcribed by Silvana Archer Authenticated and [facility]
[2024-04-09] MEDS: BARIUM SULFATE(READI-CAT2);450ML BOTTLE 450 ML PO (07:48)
[2024-04-09] MEDS: IOPAMIDOL-370 (76%);100ML BOTTLE 75 ML IV (07:48)
[2024-04-09] MEDS: SODIUM CHLORIDE 0.9% 10ML SYR (RAD ONLY) 10 ML IV (07:48)
== END 2024-04-09 23:59 | disposition home or self-care (01) ==
LOC: RAD 07:18
PROVIDERS: PCP Nurse Practitioner Family; Visit Provider Student in an Organized Health Care Education/Training Program
DX: R10.9 Unspecified abdominal pain (principal); R79.82 Elevated C-reactive protein (CRP)
CPT/HCPCS: 74177; Q9967

== ENCOUNTER 2024-04-24 09:04 | Outpatient (CLI) | payer OTHER, SELFPAY ==
--- NOTE | 2024-04-24 09:09 | MR_ITS ---
FINAL REPORT CLINICAL HISTORY: left knee injury with pain. NO INJURY OR TRAUMA. LATERAL SIDED KNEE PAIN. INSTABILITY IN KNEE COMPARISON: None FINDINGS: Multi planar MR imaging was performed of the left knee. The anterior and posterior cruciate ligaments are intact. The quadriceps and patellar tendons are intact. The medial and lateral menisci are intact without evidence of tear. The medial and lateral collateral ligaments appear intact. The medial and lateral retinacula appear intact. There is a small osteochondral lesion along the anterior lateral femoral condyle measuring up to 1.1 cm. There is a minimal joint effusion. IMPRESSION: Minimal joint effusion. 1.1 cm osteochondral along the lesion lateral femoral condyle. Reviewed, Interpreted and Dictated by Ángel Jennings MD Transcribed by Eliane Delgadillo Authenticated and [facility]
== END 2024-04-24 23:59 | disposition home or self-care (01) ==
LOC: RAD 09:05
PROVIDERS: PCP Nurse Practitioner Family; Visit Provider Nurse Practitioner Family
DX: M25.562 Pain in left knee (principal); S89.92XA Unspecified injury of left lower leg, initial encounter
CPT/HCPCS: 73721

== ENCOUNTER 2024-05-23 14:00 | Outpatient (RCR) | payer OTHER, SELFPAY ==
--- NOTE | 2024-05-09 15:44 | HMH.PTOPEV ---
PT Outpatient Evaluation Rehab PT Outpatient Evaluation Start: 05/09/24 15:06 Freq: Status: Active Protocol: Document 05/09/24 15:06 ELZBIETA (Rec: 05/09/24 15:43 JOSEJOHANASELVIN [id number]) E-signed By Yuri Matta, PT Outpatient Therapy Subjective History Subjective History The patient is a 23 yof who is referred to [facility] outpatient Physical Therapy with complaints of L sided knee pain that began approximately 1 year ago from insidious onset. She reports that she began going to the gym and noticed that squats, leg extensions and cardio seemed to exacerbate her symptoms. At this point, she is unable to complete a squat. In the past 6 months, she has noticed increased weakness and feelings of it giving out from time to time. She reports that she is not confident in her L knee being able to catch her if she lost her balance. She reports that it occasionally pops and clicks, but after it pops it usually feels a little better. She reports ice and elevation seem to help tremendously. 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 She reports no other pertinent PMH . New diagnosis of cancer in past 12 No months? Chief Complaint Pain,Clicks,Gives out/Unstable Symptom Type Throb Symptoms Relieved By Rest/Positioning,Ice,Elevation Symptoms Aggravated By Standing,Bending/Stooping, Twisting,Walking,Lifting Prior Functional Limitations None Current Functional Limitations Lifting,Squatting,Walking, Stairs,Balance Symptom Description Intermittent Level of pain today (0-10) 3 Pain scale - at its best (0-10) 0 Pain scale - at its worst (0-10) 10 Hip/Knee Eval Gait Observation General Gait Pattern Observation Antalgic Gait,Decrease Weight Bear (L),Decrease Stride Lngth (R) Palpation Tenderness left Knee Palpation Finding Tenderness Knee Palpation Overall Comment 2/4 to lateral joint line MMT Hip Flexion Strength Grade 3+ Fair+ Hip Abduction Strength Grade 3+ Fair+ Hip Extension Strength Grade 3+ Fair+ Knee Extension Strength Grade 3- Fair- Knee Flexion Strength Grade 4 Good ROM Knee Extension Active Range of Motion ( 0 degrees) Knee Flexion Active Range of Motion ( 130 degrees) Special Tests Hip Evelia's Test Negative Left Hip Wilner Test Negative Left Hip Piriformis Test Negative Left Sciatic Nerve Tension Test Negative Left Dashawn Test Negative Hip Trendelenburg Test Negative Left,Negative Right Knee Varus Stress Test Negative Right,Positive Left Knee Felix Test Positive Left Lower Extremity Functional Index Activities Today, do you or would you have any difficulty at all with: a.Any of your usual work, housework or Moderate difficulty school activities b. Your usual hobbies, recreational or Quite a bit of difficulty sporting activities c. Getting into or out of the bath No difficulty d. Walking between rooms A little bit of difficulty e. Putting on your shoes or socks Moderate difficulty f. Squatting Extreme difficulty or unable to perform activity g. Lifting an object, like a bag of No difficulty groceries from the floor h. Performing light activities around A little bit of difficulty your home i. Performing heavy activities around Moderate difficulty your home j. Getting into or out of a car Quite a bit of difficulty k. Walking 2 blocks Quite a bit of difficulty l. Walking a mile Extreme difficulty or unable to perform activity m. Going up or down 10 stairs (about 1 Extreme difficulty or unable flight of stairs) to perform activity n. Standing for 1 hour Quite a bit of difficulty o. Sitting for 1 hour No difficulty p. Running on even ground Extreme difficulty or unable to perform activity q. Running on uneven ground Extreme difficulty or unable to perform activity r. Making sharp turns while running fast Extreme difficulty or unable to perform activity s. Hopping Extreme difficulty or unable to perform activity t. Rolling over in bed No difficulty LEFI Score Lower Extremity Functional Index Score 32 Miscellaneous Dx PT Eval Objective Objective Pain with maximal knee flexion Pain with forced hyperextension Thessaly Test: + Outpatient Therapy Assessment Impairments Problems/Impairmments Palpation Tenderness,Impaired Strength,Impaired Gait Pattern ,Impaired Walking,Impaired Standing,Impaired Household Care,Impaired Stair Climbing, Impaired Squatting,Subjective C/O Pain Prognosis Rehab Potential Good Comment Pt presents with impairments in L LE strength, ambulation and functional mobility. The pt presents with pain isolated to the lateral joint line with palpation, pain with maximal knee flexion and forced hyperextension. The pt also demonstrated a positive Felix and Thessaly Test. These signs and symptoms suggest potential lateral meniscal involvement for this patient. The pt would benefit from skilled PT with an emphasis on improving the pt's LE strength, dynamic stability and tolerance to weight bearing to address her current impairments and to prevent further injuries. Clinical Impression Consistent with Diagnosis Yes Short Term Goals Number of Weeks 4 Decreased Palpation Tenderness Yes: 05/03 to L knee Increase Strength Yes: 4/5 to L knee and hip Improve Gait Pattern without Assistive Yes: No Gait abnormalities Device Increase Ability to Walk Yes: 1/4 mile without increasing pain Increase Ability to Stand Yes: 30 minutes without increasing pain Improve LEFI Score Yes: to 41 Decrease Subjective C/O Pain Yes: 5/10 with above activities Patient to be Ind w/ HEP Yes Gasfitter Goals Number of Weeks 8 Decreased Palpation Tenderness Yes: 0/4 to L knee Increase Strength Yes: 5/5 to L hip/knee Increase Ability to Walk Yes: 1/2 mile without increasing pain Increase Ability to Stand Yes: 1 hour without increasing pain Improve Ability to Squat Yes: Squat with normal mechanics and no verbal cueing Improve LEFI Score Yes: to 50 Decrease Subjective C/O Pain Yes: 2/10 with above activities Patient to be Ind w/ Advanced HEP Yes Outpatient Therapy Plan of Care Treatment Plan May Include Therapeutic Exercise Including Home Yes Exercise Program Manual Therapy Techniques Yes Neuromuscular Re-education Yes Therapeutic Activities to Return to Yes Previous Functional/Work Level Gait Training Yes ADL/Self Care Education Yes Dry Needling Yes Thermal Modalities Yes Electrical Stimulation Yes Ultrasound/Phonophoresis Yes Massage Yes Manual Lymphatic Drainage Yes Eval/Re-Eval Yes Frequency Times per week 2 Duration Number of Weeks 8 Addendums This patient is a candidate for social No or vocational rehab? Patient/Guardian verbally acknowledges Yes understanding of treatment program and consents to further treatment? Patient/Guardian verbally acknowledges Yes understanding of diagnosis, prognosis and goals for treatment? Eval Complexity PT Charges 25250 - Moderate Complexity Shoulder/Elbow Eval Shoulder Objective Measurements Elbow Objective Measurements PHYSICIAN CERTIFICATION: I certify the specified therapy services for Vivi Russell are required, authorized, and reviewed every 30 days.
== END 2024-05-23 23:59 | disposition home or self-care (01) ==
LOC: PT 14:00
PROVIDERS: Visit Provider Nurse Practitioner Family
DX: M25.562 Pain in left knee (principal); M25.462 Effusion, left knee; M89.9 Disorder of bone, unspecified; M94.9 Disorder of cartilage, unspecified
CPT/HCPCS: 97110; 97163; 97530

== ENCOUNTER 2024-06-12 16:00 | Outpatient (RCR) | payer OTHER, SELFPAY | END 2024-06-12 23:59 | disposition home or self-care (01) | LOC: PT 16:00 | PROVIDERS: Visit Provider Nurse Practitioner Family | DX: M25.562 Pain in left knee (principal); M25.462 Effusion, left knee | CPT/HCPCS: 97110; 97530 ==

== ENCOUNTER 2024-07-01 12:08 | Outpatient (CLI) | payer OTHER, SELFPAY ==
[2024-07-01 15:05] VITALS: BMI 50.9
== END 2024-07-01 23:59 | disposition home or self-care (01) ==
LOC: DIETICIAN 12:09
PROVIDERS: PCP Nurse Practitioner Family; Visit Provider Nurse Practitioner Family
DX: E66.9 Obesity, unspecified (principal); Z68.43 Body mass index [BMI] 50.0-59.9, adult
CPT/HCPCS: 97802

== ENCOUNTER 2024-08-13 09:55 | Outpatient (CLI) | payer OTHER, SELFPAY ==
[2024-08-13 10:15] LABS: Basophils % 0.4 % (0.1-2.0); Eosinophils # 0.1 K/mm3 (0.0-0.4); Eosinophils % 1.3 % (0.1-12.0); Hematocrit 39.6 % (37.0-47.0); Hemoglobin 13.2 g/dL (12.2-16.2); Lymphocytes % 24.8 % (10-50); Mean Corpuscular HGB Conc 33.3 g/dL (31.8-35.4); Mean Corpuscular Hemoglobin 27.8 pg (27.0-31.2); Mean Corpuscular Volume 83.5 fl (81-99); Mean Platelet Volume 10.6 fl (7.4-10.4); Monocytes # 0.5 K/mm3 (0.1-1.0); Monocytes % 6.6 % (1.7-9.3); Neutrophils # 5.4 K/mm3 (1.8-7.8); Neutrophils % 66.5 % (37.0-80.0); Nucleated Red Blood Cells # 0 10^3/uL; Nucleated Red Blood Cells % 0 %; Platelet Count 306 K/mm3 (142-424); Red Blood Count 4.74 M/mm3 (4.20-5.40); Red Cell Distribution Width 13.5 % (11.5-17.5); Red Cell Distribution Width-SD 41.2 fL; White Blood Count 8.2 K/mm3 (4.8-10.8)
[2024-08-13 10:21] LABS: Urine Pregnancy, HCG Qual. Negative (Negative)
[2024-08-13 10:42] LABS: Chloride 104 mmol/L (98-107); Sodium 138 mmol/L (136-145)
[2024-08-13 10:43] LABS: Potassium 4.4 mmoL/L (3.5-5.1)
[2024-08-13 10:45] LABS: Anion Gap 12.4 mEq/L (5-15); Blood Urea Nitrogen 12 mg/dl (7-17); Carbon Dioxide 26 mmol/L (22.0-30.0); Estimated Glomerular Filt Rate 122 ml/min (>60); GFR (African American) 147 ML/MIN (>60)
[2024-08-13 10:46] LABS: Calcium 8.8 mg/dl (8.4-10.2); Glucose 94 mg/dl (74-100)
== END 2024-08-13 23:59 | disposition home or self-care (01) ==
LOC: LAB 09:56
PROVIDERS: PCP Nurse Practitioner Family; Visit Provider Surgery
DX: L05.91 Pilonidal cyst without abscess (principal)
CPT/HCPCS: 36415; 80048; 81025; 85025

== ENCOUNTER 2024-08-14 07:53 | Day surgery (SDC) | payer OTHER, SELFPAY ==
[2024-08-13 10:33] VITALS: BMI 50.2
[2024-08-14] VITALS (10 sets, daily range): BP systolic 92–145; BP diastolic 40–87; PULSE 62–94; RESP 14–18; TEMP 36.1–36.4; O2SAT 96–100
--- NOTE | 2024-08-14 09:10 | EXP.ANES.CKL ---
[facility] Disclaimer: The information contained in this section may have been updated after the patient was seen, as this information can be updated by other users. Medical History UTI (urinary tract infection) Sinusitis Viral syndrome Abdominal discomfort URI (upper respiratory infection) Fatigue Asthma Hidradenitis suppurativa Morbid obesity with BMI of 45.0-49.9, adult Nexplanon in place Surgical History History of wisdom tooth extraction Family History Father Obesity Mother Cancer right renal cancer with right nephrectomy Social History Smoking Status: Never smoker alcohol intake: never substance use type: denies use current occupational status: employed and unemployed Travel in the last 8 weeks: None adopted: Yes household members: spouse marital status: number of children: 0 well-balanced diet: about half the time caffeine: No physical activity: walking and weight training frequency: 5-6 times per week duration: 30-45 minutes/day Have you lived/traveled outside [place] in past 30 days?: No Contact w/someone who lives/traveled outside [place] past 30 days?: No Exposure to someone with infectious disease in past 14 days?: No Do you have a fever (greater than 100.4 F or 38 C)?: No Have you tested positive for COVID-19: No Exposed to someone with COVID-19 in past 14 days?: No Do you have a sore throat?: No Do you have a cough?: No Do you have any weakness?: No Are you experiencing any nausea/vomitting?: No Do you have any diarrhea?: No Are you experiencing any unusual bleeding?: No Do you have any muscle aches/pain?: No Do you have any abdominal pain?: No Are you experiencing loss of taste or smell?: No [facility] Anesthesia Checklist Patient Identification Patient Identification: Arm Band Structural Data Admitted From: Home Planned Operative Procedure/s: I&D Pilonidal Abscess Consent for Planned Operative Procedure(s) Verified: Yes Verified Documents: Surgical Consent and History and Physical NPO Status Verified Time NPO: 00:00 Additional verifications Anesthesia Reactions: No Hx Blood Transfusions: No Blood Transfusion Reaction: No Airway Assessment Mallampati Score:: Class II C-Spine Mobility Assessed: Yes TMJ Mobility Assessed: Yes Dentition: Good Dentition Neurological Assessment Level of Consciousness: Awake, Alert and Appropriate Anesthesia Plan Anesthesia Risk discussed: Yes Anesthesia Plan: Verified ASA Class: III Anesthesia Type: General
[2024-08-14] MEDS: CLINDAMYCIN PHOSPHATE/D5W 900 MG/50 ML PIGGYBACK 100 MG IV (10:40)
[2024-08-14] MEDS: METRONIDAZ/SOD CHL 500 MG/100 ML PIGGYBACK 100 MG IV (10:50)
[2024-08-14] MEDS: LIDOCAINE 1% 20ML MDV 20 ML (10:50)
--- NOTE | 2024-08-14 11:00 | EXP.OP.NOTE ---
Date of procedure: 08/14/24 Pre-op Diagnosis:: Pilonidal abscess Post-op Diagnosis:: Same Procedure performed:: Incision and drainage of pilonidal abscess Surgeon:: Albino Pereyra MD Anesthesia: LMA Estimated blood loss (mL): 10 Operative findings:: Complex pilonidal cyst with abscess and multiple punctae Operative note:: After informed consent was obtained the patient was taken to the operating room and placed in the left lateral decubitus position. Her buttock cleft region was prepped and draped in a sterile fashion. The obvious palpable abscess was carefully opened. Purulent fluid was evacuated. An additional punctum 2 cm distally was opened with electrocautery. A third punctum approximately 4 cm distally was also opened with electrocautery. All 3 wounds were packed with a single 4 x 4 gauze. Dressings were applied and the patient was transferred to recovery in stable condition. Condition: stable Disposition: PACU Specimens:: none Complications:: No immediate
--- NOTE | 2024-08-14 11:18 | EXP.ANES.I ---
[facility] Anesthesia Record Part I Anesthesia Record I Intake, IV Amount: 400 Hydration: Adequate Estimated blood loss (mL): 0 Urine output (mL): 0 Blood Products used (#): none Blood Pressure: 98/55 SaO2: 98 Pulse Rate: 75 Airway Patency: Patent Respiratory Rate: 14 Temperature: 97.0 F Patient is:: Drowsy, Nasal O2 and Stable Stable to PACU at:: 11:04
--- NOTE | 2024-08-15 07:18 | P.PNANES_ITS ---
[facility] Anesthesia Record Part II Anesthesia Record Part II Discharge Time: 11:33 Destination: Surgical Day Care (OP Surgery) PACU nurse assessment reviewed?: Yes Patient Condition:: Good Anesthesia Complications:: None Swallowing reflex intact?: Yes Airway Patency: Patent Cyanosis?: No Blood Pressure: 111/66 SaO2: 98 Respiratory Rate: 17 Pulse Rate: 67 Temperature: 97.2 F Mental Status: Alert & Oriented Pain level:: 0 Nausea and/or vomitting:: None Intake, IV Amount: 0 Hydration: Adequate
[2024-08-15 07:19] VITALS: BP 111/66; PULSE 67; RESP 17; TEMP 36.2; O2SAT 98
== END 2024-08-14 12:24 | disposition home or self-care (01) ==
PROVIDERS: PCP Nurse Practitioner Family; Visit Provider Surgery
PROC: (CPT 10080; principal; 2024-08-14 09:45)
DX: L05.01 Pilonidal cyst with abscess (principal)
CPT/HCPCS: 10080; 96374; J0736; J1100; J1885; J2250; J2405; J3010